=== PATIENT | female | born 1950 | race Two or more races ===

== ENCOUNTER → 2020-05-30 12:58 | Outpatient (BNVA) | payer MEDICARE, OTHER, SELFPAY | PROVIDERS: PCP Internal Medicine; Visit Provider Hospitalist | DX: J45.40 Moderate persistent asthma, uncomplicated (principal); Z79.899 Other long term (current) drug therapy | CPT/HCPCS: 99214 ==

== ENCOUNTER → 2020-09-08 12:52 | Outpatient (BNVA) | payer MEDICARE, OTHER, SELFPAY | PROVIDERS: PCP Internal Medicine; Visit Provider Hospitalist | DX: J31.0 Chronic rhinitis (principal); J45.40 Moderate persistent asthma, uncomplicated | CPT/HCPCS: 99212 ==

== ENCOUNTER → 2021-01-15 13:22 | Outpatient (BNVA) | payer MEDICARE, OTHER, SELFPAY | PROVIDERS: PCP Internal Medicine; Visit Provider Hospitalist | DX: J45.41 Moderate persistent asthma with (acute) exacerbation (principal); J31.0 Chronic rhinitis | CPT/HCPCS: 99212 ==

== ENCOUNTER → 2021-05-26 14:06 | Outpatient (BNVA) | payer MEDICARE, OTHER, SELFPAY | PROVIDERS: PCP Internal Medicine; Visit Provider Hospitalist | DX: J45.41 Moderate persistent asthma with (acute) exacerbation (principal); J31.0 Chronic rhinitis | CPT/HCPCS: 99212 ==

== ENCOUNTER → 2021-09-21 09:01 | Outpatient (BNVA) | payer MEDICARE, OTHER, SELFPAY | PROVIDERS: PCP Internal Medicine; Visit Provider Psychiatry & Neurology Neurology | DX: G43.109 Migraine with aura, not intractable, without status migrainosus (principal) | CPT/HCPCS: 99212 ==

== ENCOUNTER → 2021-12-03 14:49 | Outpatient (BNVA) | payer MEDICARE, OTHER, SELFPAY | PROVIDERS: PCP Internal Medicine; Visit Provider Hospitalist | DX: J45.41 Moderate persistent asthma with (acute) exacerbation (principal); J31.0 Chronic rhinitis | CPT/HCPCS: 99212 ==

== ENCOUNTER → 2021-12-21 12:47 | Outpatient (BNVA) | payer MEDICARE, OTHER, SELFPAY | PROVIDERS: PCP Internal Medicine; Visit Provider Psychiatry & Neurology Neurology | DX: G43.109 Migraine with aura, not intractable, without status migrainosus (principal); G43.709 Chronic migraine without aura, not intractable, without status migrainosus | CPT/HCPCS: 99212 ==

== ENCOUNTER 2022-04-13 15:45 | Outpatient (REF) | payer MEDICARE, OTHER, SELFPAY ==
--- NOTE | ~2022-04-13 | XR_ITS ---
EXAMINATION: XR CHEST CLINICAL INFORMATION: Moderate persistent asthma with acute exacerbation COMPARISON: None TECHNIQUE: 2 views of the chest were obtained. FINDINGS: No significant abnormality is noted involving the heart, lungs, mediastinum, bony thorax or soft tissues. XR/XR chest 2V IMPRESSION: Unremarkable chest examination.
== END 2022-04-13 15:46 | disposition home or self-care (01) ==
LOC: HO.XRAY 15:45
PROVIDERS: PCP Internal Medicine; Visit Provider Hospitalist
DX: J45.41 Moderate persistent asthma with (acute) exacerbation (principal); J38.5 Laryngeal spasm; J31.0 Chronic rhinitis
CPT/HCPCS: 71046; 99212

== ENCOUNTER → 2022-05-28 14:26 | Outpatient (BNVA) | payer MEDICARE, OTHER, SELFPAY | PROVIDERS: PCP Internal Medicine; Visit Provider Hospitalist | DX: J45.41 Moderate persistent asthma with (acute) exacerbation (principal); J31.0 Chronic rhinitis; J38.5 Laryngeal spasm | CPT/HCPCS: 99212 ==

== ENCOUNTER → 2022-09-10 | Outpatient (BNVA) | payer MEDICARE, OTHER, SELFPAY | PROVIDERS: PCP Internal Medicine; Visit Provider Psychiatry & Neurology Neurology | DX: G43.119 Migraine with aura, intractable, without status migrainosus (principal) | CPT/HCPCS: 64615; 99211; J0585 ==

== ENCOUNTER 2022-11-01 14:06 | Outpatient (REF) | payer MEDICARE, OTHER, SELFPAY ==
--- NOTE | 2022-11-01 07:42 | PFT_ITS ---
INDICATION: COPD. SPIROMETRY: FEV1 to FVC 79% with an FEV1 of 1.96 L, which is 96% predicted and FVC of 2.49 L, which is 92% predicted. No significant response to bronchodilators noted. Maximum voluntary ventilation 87% predicted. LUNGS VOLUMES: Total lung capacity 93% predicted. DIFFUSION CAPACITY: DLCO 87% predicted. COMPARISONS: None. INTERPRETATION: No obstructive, no restrictive ventilatory defects have been identified. No significant response to bronchodilators noted. Normal maximum voluntary ventilation. Lung volumes are within normal limits. Diffusion capacity also within normal limits. Clinical correlation warranted. Alden Ansari MD MR/MODL / [id number]
== END 2022-11-01 14:07 | disposition home or self-care (01) ==
LOC: HO.RESP 14:06
PROVIDERS: PCP Internal Medicine; Visit Provider Hospitalist
DX: J45.41 Moderate persistent asthma with (acute) exacerbation (principal)
CPT/HCPCS: 94060; 94727; 94729

== ENCOUNTER → 2022-11-26 14:37 | Outpatient (BNVA) | payer MEDICARE, OTHER, SELFPAY | PROVIDERS: PCP Internal Medicine; Visit Provider Hospitalist | DX: J45.41 Moderate persistent asthma with (acute) exacerbation (principal); J31.0 Chronic rhinitis; J38.5 Laryngeal spasm; Z79.899 Other long term (current) drug therapy | CPT/HCPCS: 99212 ==

== ENCOUNTER 2023-08-05 14:20 | Outpatient (AMB) | payer MEDICARE, OTHER, SELFPAY ==
--- NOTE | 2023-08-05 14:21 | MHC.OFFVIS ---
Intake Vital Signs 08/05/23 14:22 Height 5 ft 2 in Weight 126 lb 12.253 oz BMI 23.2 BP 126/70 Blood Pressure Location Lt brachial Position Sitting Pulse 86 Pulse Source Doppler Pulse Oximetry (%) 95 Oxygen Delivery Method Room Air Intake Visit Reasons: Asthma Allergies aspirin Allergy (Severe, Verified 08/05/23 14:26) Upset GI penicillin V Allergy (Severe, Verified 08/05/23 14:26) Rash/Hives HPI HPI Comments History of Present Illness Details The patient is a 73-year-old woman with a known history of chronic allergic rhinitis and asthma. She has been on the Symbicort and also the Spiriva she takes and on a regular basis with good adherence. The patient usually has 2-3 exacerbations a year and also has episodes sinusitis. She usually needs to be on prednisone for those exacerbations. She is wondering if she has a candidate for biologic therapy. At this time her respiratory status is stable so will continue to monitor her. In the meantime will request blood work to assess her eosinophils in her IgE level. Will also have her undergo allergy testing to see what her triggers are. Her nasal congestion is better at this time. The last time she was treated with prednisone and antibiotics was back in January 2020 for sinusitis. 08/05/2023 the patient is here for pulmonary follow-up visit. The patient overall has been doing well from a respiratory status. She continues on the Trelegy 100. She is tolerating the low dose well. Has not requiered her MARK. She does have nasal congestion and allergies. Responding well to the Dymista nasal spray.. She is already using singular at nighttime. Also using Zyrtec as needed.. She did have pulmonary function studies which I personally reviewed with her. They look fairly normal. No evidence of any obstructive nor restrictive lung disease. Diffusing capacity is within normal limits. Otherwise patient is doing well will follow-up in a year's time. [facility] Medical History Asthma Chronic rhinitis Family History Father Myocardial infarct Mother Myocardial infarct Son No problems noted. Social History Alcohol intake: current Alcohol intake frequency: holidays/special occasions only Patient Tobacco Use Status: Never used Tobacco Review of Systems Const Denies night sweats Eyes Denies change in vision ENT Denies lip swelling, Denies mouth pain, Reports nasal congestion, Reports nasal discharge and Denies tongue swelling Card Denies chest pain, Denies dyspnea and Denies dyspnea on exertion Resp Reports cough, Denies dyspnea, Denies dyspnea on exertion, Denies stridor and Denies wheezing GI Denies abdominal pain Musc Denies no additional complaints Neuro Denies Neuro-related abnormal movements Psych Denies no additional complaints Roderick/Lymph Denies easy bleeding and Denies lymphadenopathy Aller/Immun Denies lip swelling, Denies tongue swelling and Denies wheezing Physical Exam Vital Signs: Last Vital Signs Pulse 86 08/05/23 14:22 BP 126/70 08/05/23 14:22 Pulse Ox 95 08/05/23 14:22 Oxygen Delivery Method Room Air 08/05/23 14:22 BMI result Body Mass Index 23.2 Const General: alert Neck Neck: Yes normal visual inspection, Yes full ROM and Yes supple Chest Chest palpation & inspection: normal inspection of the chest Resp Auscultation: clear to auscultation bilaterally, no rales, no rhonchi and no wheezes Cardio Rate: regular rate Rhythm: regular rhythm Heart sounds: S1 normal heart sound present and S2 normal heart sound present GI Palpation (GI): Soft to palpation and nontender Auscultation: normal bowel sounds Skin General skin exam: rashes and/or lesions noted Assessment & Plan Assessment & Plan (1) Asthma: Code(s): J45.909 - Unspecified asthma, uncomplicated Qualifiers: Asthma complication type: with acute exacerbation Asthma persistence: persistent Asthma severity: moderate Qualified Code(s): J45.41 - Moderate persistent asthma with (acute) exacerbation (2) Chronic rhinitis: Code(s): J31.0 - Chronic rhinitis (3) Laryngeal spasm: Code(s): J38.5 - Laryngeal spasm Plan Continue Zyrtec as needed or Xyzal Pepcid as needed Continue Singulair tessalon pearls as needed continue Dymista nasal spray continue Trelegy 100mcg daily MARK as needed F/U 12 months Coding Level of Care Code Est Pt Level 4 (49261) Diagnoses Moderate persistent asthma with acute exacerbation J45.41 Asthma complication type: with acute exacerbation Asthma persistence: persistent Asthma severity: moderate Chronic rhinitis J31.0 Laryngeal spasm J38.5 Time Spent (min) 16
[2023-08-05 14:22] VITALS: BP 126/70; PULSE 86; O2SAT 95; BMI 23.2
== END 2023-08-05 14:33 | disposition home or self-care (01) ==
PROVIDERS: PCP Internal Medicine; Visit Provider Hospitalist
DX: J45.41 Moderate persistent asthma with (acute) exacerbation (principal); J31.0 Chronic rhinitis; J38.5 Laryngeal spasm
CPT/HCPCS: 99214

== ENCOUNTER → 2023-08-05 14:20 | Outpatient (BNVA) | payer MEDICARE, OTHER, SELFPAY | PROVIDERS: PCP Internal Medicine; Visit Provider Hospitalist | DX: J45.41 Moderate persistent asthma with (acute) exacerbation (principal); J31.0 Chronic rhinitis; J38.5 Laryngeal spasm | CPT/HCPCS: 99212 ==

== ENCOUNTER 2024-07-17 15:46 | Outpatient (AMB) | payer MEDICARE, OTHER, SELFPAY ==
[2024-07-17 15:55] VITALS: BP 158/86; PULSE 71; O2SAT 98; BMI 21.8
--- NOTE | 2024-07-17 15:55 | A.OFFVIS_ITS ---
Vital Signs 07/17/24 15:55 Height 5 ft 2 in Weight 119 lb 0.794 oz BMI 21.8 BP 158/86 H Blood Pressure Location Rt brachial Position Sitting Pulse 71 Pulse Source Pulse Oximeter Pulse Oximetry (%) 98 Oxygen Delivery Method Room Air Intake Visit Reasons: asthma Allergies aspirin Allergy (Severe, Verified 07/17/24 15:58) Upset GI penicillin V Allergy (Severe, Verified 07/17/24 15:58) Rash/Hives HPI Comments Details: The patient is a 74-year-old woman with a known history of chronic allergic rhinitis and asthma. She has been on the Symbicort and also the Spiriva she takes and on a regular basis with good adherence. The patient usually has 2-3 exacerbations a year and also has episodes sinusitis. She usually needs to be on prednisone for those exacerbations. She is wondering if she has a candidate for biologic therapy. At this time her respiratory status is stable so will continue to monitor her. In the meantime will request blood work to assess her eosinophils in her IgE level. Will also have her undergo allergy testing to see what her triggers are. Her nasal congestion is better at this time. The last time she was treated with prednisone and antibiotics was back in January 2020 for sinusitis. 08/05/2023 the patient is here for pulmonary follow-up visit. The patient overall has been doing well from a respiratory status. She continues on the Trelegy 100. She is tolerating the low dose well. Has not requiered her MARK. She does have nasal congestion and allergies. Responding well to the Dymista nasal spray.. She is already using singular at nighttime. Also using Zyrtec as needed.. She did have pulmonary function studies which I personally reviewed with her. They look fairly normal. No evidence of any obstructive nor restrictive lung disease. Diffusing capacity is within normal limits. Otherwise patient is doing well will follow-up in a year's time. 07/17/2024 the patient is here for a pulmonary follow-up visit since we last spoke the patient has been concerned because she is having episodes of laryngospasm. There happening more often since she came back to the [place]. She has been also having episodes of coughing does sometimes brings about the laryngeal spasms. When she is drinking called her eating something called she may start having scratchy sensation. In addition to that when she speaks a lot she also feels raspiness of the voice starts getting irritated. The patient does have underlying reflux disease that may be aggravating her larynx. She does not take any PPIs because of the concerns about osteoporosis. Therefore, I will send her Pepcid to the pharmacy she can use that instead. She should also continue sleeping elevated and continue with the reflux diet. In addition to that we can try some gabapentin for neurogenic cough. She does have a very sensitive larynx at this time and that may be helpful. She can start with 1 capsule 100 mg and then increase it slowly to the 200. I's emphasize that this is a very small dose and that is unlikely to cause her significant drowsiness but to monitor closely. From an asthma standpoint she has been very good on the Trelegy. She should continue that for now. We also talked about the importance about a massaging the throat area the way she was taught by the speech therapist and also doing warm compresses for the larynx also may help so than those muscles. The patient will return when she comes back from [place]. If she has any issues she will call for an earlier assessment. COUNTS INCLUDE 234 BEDS AT THE [facility] Medical History Asthma Chronic rhinitis Family History Father Myocardial infarct Mother Myocardial infarct Son No problems noted. Social History Alcohol intake: current Alcohol intake frequency: holidays/special occasions only Patient Tobacco Use Status: Never used Tobacco Review of Systems Const Denies night sweats Eyes Denies change in vision ENT Denies lip swelling, Denies mouth pain, Reports nasal congestion, Reports nasal discharge and Denies tongue swelling Card Denies chest pain, Denies dyspnea and Denies dyspnea on exertion Resp Reports cough, Denies dyspnea, Denies dyspnea on exertion, Denies stridor, Denies wheezing and Reports other (laryngospasms) GI Denies abdominal pain Musc Denies no additional complaints Neuro Denies Neuro-related abnormal movements Psych Denies no additional complaints Roderick/Lymph Denies easy bleeding and Denies lymphadenopathy Aller/Immun Denies lip swelling, Denies tongue swelling and Denies wheezing Physical Exam Vital Signs: Last Vital Signs Pulse 71 07/17/24 15:55 BP 158/86 H 07/17/24 15:55 Pulse Ox 98 07/17/24 15:55 Oxygen Delivery Method Room Air 07/17/24 15:55 BMI result Body Mass Index 21.8 Const General: alert Neck Neck: Yes normal visual inspection, Yes full ROM and Yes supple Chest Chest palpation & inspection: normal inspection of the chest Resp Effort & Inspection: normal respiratory effort Auscultation: clear to auscultation bilaterally, no rales, no rhonchi and no wheezes Cardio Rate: regular rate Rhythm: regular rhythm Heart sounds: S1 normal heart sound present and S2 normal heart sound present GI Palpation (GI): Soft to palpation and nontender Auscultation: normal bowel sounds Skin General skin exam: rashes and/or lesions noted Assessment & Plan Assessment & Plan (1) Asthma: Code(s): J45.909 - Unspecified asthma, uncomplicated Category: Medical Qualifiers: Asthma complication type: with acute exacerbation Asthma persistence: persistent Asthma severity: moderate Qualified Code(s): J45.41 - Moderate persistent asthma with (acute) exacerbation (2) Chronic rhinitis: Code(s): J31.0 - Chronic rhinitis Category: Medical (3) Laryngeal spasm: Code(s): J38.5 - Laryngeal spasm Category: Medical Plan Continue Zyrtec as needed or Xyzal Pepcid 40mg QHS start low dose gabapentin 200mg QHS for neurogenic cough/spasms neck massage warm compress over larynx Continue Singulair tessalon pearls as needed continue Dymista nasal spray continue Trelegy 100mcg daily MARK as needed F/U 6-8 months Medications: New gabapentin 200 mg (2 x 100 mg) PO BEDTIME 60 caps 11RF 30 days Changed From famotidine 40 mg PO BEDTIME 90 tabs 1RF To famotidine 40 mg PO BEDTIME 90 tabs 3RF 90 days Refilled benzonatate 200 mg PO BID PRN 60 caps 11RF for cough J45.41 - Moderate persistent asthma with (acute) exacerbation Coding Level of Care Code Est Pt Level 4 (47467) Diagnoses Moderate persistent asthma with acute exacerbation J45.41 Asthma complication type: with acute exacerbation Asthma persistence: persistent Asthma severity: moderate Chronic rhinitis J31.0 Laryngeal spasm J38.5 Time Spent (min) 17
== END 2024-07-17 16:24 | disposition home or self-care (01) ==
PROVIDERS: PCP Internal Medicine; Visit Provider Hospitalist
DX: J45.41 Moderate persistent asthma with (acute) exacerbation (principal); J31.0 Chronic rhinitis; J38.5 Laryngeal spasm
CPT/HCPCS: 99214

== ENCOUNTER → 2024-07-17 15:46 | Outpatient (BNVA) | payer MEDICARE, OTHER, SELFPAY | PROVIDERS: PCP Internal Medicine; Visit Provider Hospitalist | DX: J45.41 Moderate persistent asthma with (acute) exacerbation (principal); J31.0 Chronic rhinitis; J38.5 Laryngeal spasm | CPT/HCPCS: 99212 ==